=== PATIENT | female | born 1970 | race Two or more races ===

== ENCOUNTER 2017-11-19 17:10 | Emergency (ER) | payer BC, OTHER ==
[~2017-11-19] VITALS: Ht 162.6 cm; Wt 96.2 kg
[2017-11-19 17:25] VITALS: BP 114/63
[2017-11-19] MEDS ORDERED: FLUORESCEIN SOD 1 MG TEST STRIP ONE (20:27)
[2017-11-19] MEDS ORDERED: TETRACAINE HCL 0.5% OPTH(EYE) SOLN 4ML ONE (21:06)
[2017-11-19] MEDS ORDERED: TETRACAINE HCL 0.5% OPTH(EYE) SOLN 4ML EACHEYE ONE (21:15)
== END 2017-11-19 21:43 | disposition home or self-care (01) ==
LOC: ER 17:16
DX: H10.13 Acute atopic conjunctivitis, bilateral (principal)